=== PATIENT | male | born 1965 | race Caucasian/White ===

== ENCOUNTER 2016-05-21 18:35 | Emergency (ER) | payer SELFPAY ==
[~2016-05-21] VITALS: Ht 182.9 cm; Wt 114.9 kg
[~2016-05-21 18:35] MED LIST: MEDR4PAK3 PO; Z.0.NO CURRENT MEDS
[2016-05-21 18:46] VITALS: BP 133/91; PULSE 87; RESP 16; TEMP 98.1; O2SAT 96
[2016-05-21] MEDS ORDERED: KETOROLAC TROMETHAMINE 60 MG/2 ML (IM) VIAL IM ONE (19:15)
[2016-05-21] MEDS ORDERED: PROPARACAINE HCL 0.5% OPHT SOLN 15 ML BTL RIGHT EYE ONE (19:15)
--- NOTE | 2016-05-21 19:58 | PD ---
HPI Chief Complaint: Eye Problems/Injury Time Seen by Provider: 19:05 Travel History International Travel<30 days: No Contact w/Intl Traveler<30days: No Traveled to known affect area: No History of Present Illness HPI 50-year-old male here for evaluation of right eye pain and discharge after wet plaster got in his eye today while at work around 2:30 PM. Patient reports that he tried to flush out his eye with water. He is now complaining of retro- orbital pain and right temporal pain that he describes as sharp and constant. No photophobia. He does not wear glasses or contacts. He is having slight blurred vision in his right eye. [facility] Social History Alcohol Use: Yes (OCCASIONALLY) Tobacco Use: No Substance Use: No Allergies-Medications (Allergen,Severity, Reaction): Coded Allergies: No Known Allergies (Verified , 05/21/16) Reported Meds & Prescriptions Reported Meds & Active Scripts Active Percocet (Oxycodone-Acetaminophen) 5-325 mg Tab 1 Tab PO Q6H PRN Erythromycin Opth Oint 5 Mg/Gm Oint 1 Applic RIGHT EYE BID 10 Days Review of Systems Except as stated in HPI: all other systems reviewed are Neg Physical Exam Narrative GENERAL: Well-developed, well-nourished, awake, alert, no acute distress. SKIN: Focused skin assessment warm/dry. HEAD: Atraumatic. Normocephalic. EYES: Pupils equal, round, 3 mm, reactive to light. EOMI. No proptosis. Right scleral injection with scant purulent drainage. No obvious eye foreign body. Fluorescein staining shows no corneal abrasions or ulcerations. Corneas are clear. Right upper and lower eyelids are mildly erythematous and irritated. Visual acuity is 20/13 in the left eye, 20/25 in the right eye, 20/ 20 in both eyes. ENT: No nasal bleeding or discharge. Mucous membranes pink and moist. NEUROLOGICAL: Awake and alert. No obvious cranial nerve deficits. Motor grossly within normal limits. Normal speech. PSYCHIATRIC: Appropriate mood and affect; insight and judgment normal. Data Data Last Documented VS Vital Signs Date Time Temp Pulse Resp B/P Pulse Ox O2 Delivery O2 Flow Rate FiO2 05/21/16 20:08 68 18 145/63 96 Room Air 05/21/16 18:46 98.1 Orders Proparacaine 0.5% Opth Soln (Alcaine 0.5 (05/21/16 19:15) Eye Irrigation (05/21/16 19:09) Ketorolac Inj (Toradol Inj) (05/21/16 19:15) Erythromycin 0.5% Opth Oint (Ilotycin 0. (05/21/16 20:00) MDM Medical Decision Making Medical Screen Exam Complete: Yes Emergency Medical Condition: Yes Differential Diagnosis Corneal abrasion, corneal laceration, eye foreign body, Narrative Course Patient's right eye was anesthetized with proparacaine and a Sarath lens was applied shortly after he arrived to the emergency department and the eye was flushed with 1 L normal saline. Patient was also given IM Toradol and reports significant improvement in right eye pain and right retro-orbital pain. See eye exam in physical exam. After the patient's eye was flushed using a liter of normal saline, litmus paper to check the pH indicated a pH between 7 and 8. Case discussed with on-call older adult social work specialist Dr. Rodriges who recommends applying antibiotic ointment and discharging the patient home with outpatient follow-up. Patient is leaving for out of town tomorrow to go to a wedding. He will return to [facility] on Thursday in 4 days. He will be discharged home with a prescription for pain medication and antibiotic eye ointment. I will given the name of the older adult social work specialist production worker to follow-up with next week. He was informed on when to return to the emergency department. He verbalizes understanding and agreement with plan. Diagnosis Primary Impression: Alkaline chemical burn of right eye Additional Impression: Chemical injury of right eyelid Qualified Code: T26.51XA - Chemical injury of right eyelid, initial encounter Referrals: Atilio Rodriges MD 3 days [employer] Consultant Additional Instructions: Follow-up with older adult social work specialist Dr. Rodriges or an older adult social work specialist of your choice this week. Apply antibiotic eye ointment as prescribed. Return to the emergency department for worsening symptoms or any other concerns. Scripts Oxycodone-Acetaminophen (Percocet)5-325 mg Tab1 Tab PO Q6H PRN (PAIN) #15 TAB Ref 0 Prov:Prakash Vogel MD 05/21/16 Erythromycin Opth Oint 5 Mg/Gm Oint1 Applic RIGHT EYE BID 10 Days Ref 0 Prov:Prakash Vogel MD 05/21/16 Disposition: 01 DISCHARGE HOME Condition: Stable Prakash Vogel MD May 21, 2016 19:58
[2016-05-21] MEDS ORDERED: ERYTHROMYCIN 0.5% OPTH OINT 3.5 GM TUBO RIGHT EYE ONE (20:00)
[2016-05-21 20:08] VITALS: BP 145/63; PULSE 68; RESP 18; O2SAT 96
[2016-05-21] MEDS ORDERED: PERC5TAB12 PO (20:15)
[2016-05-21] MEDS ORDERED: ERYTOIN10 RIGHT EYE (20:15)
== END 2016-05-21 20:24 | disposition home or self-care (01) ==
LOC: PHED 18:35
DX: T26.91XA Corrosion of right eye and adnexa, part unspecified, initial encounter (principal); T26.01XA Burn of right eyelid and periocular area, initial encounter; T49.3X1A Poisoning by emollients, demulcents and protectants, accidental (unintentional), initial encounter; Y93.H3 Activity, building and construction; Y92.9 Unspecified place or not applicable; Y99.0 Civilian activity done for income or pay
CPT/HCPCS: 96372; 99283; J1885